=== PATIENT | female | born 1980 | race Caucasian/White ===

== ENCOUNTER 2016-10-10 11:01 | Emergency (ER) | payer MEDICAID, OTHER ==
[~2016-10-10] VITALS: Ht 160 cm; Wt 75.0 kg
[2016-10-10 11:12] VITALS: Ht 160 cm; Wt 75.0 kg
[2016-10-10] MEDS ORDERED: SOD CHLORIDE 0.9% 1,000 ML IV STA (12:44)
[2016-10-10] MEDS ORDERED: LORAZEPAM 2 MG INJ IV ONE (13:00)
--- NOTE | 2016-10-10 13:09 | ERD ---
ER Documentation Chief Complaint Date/Time DATE: 10/10/16 TIME: 13:07 Chief Complaint left jaw pain,diffiulty opening mouth.neck pain HPI This is a 36 year old female with a history of chronic neck pain for the past one half years presents to the emergency department complaining of left temporomandibular joint pain and jaw pain since this morning. Patient states that she had a stressful event at work and she started having worsening jaw pain throughout the day. Patient states that she realizes whenever she gets stressed out her neck and shoulder pain get worse. Patient states that she has not tried any medications, she states that she tried to have a baby does not want to take medications continuously. Patient states that she feels like she has palpitations and numbness and tingling and both of her hands. Patient denies any chest pain or shortness of breath however she states she has a history of chest pain and they discussed with her to follow-up with a hardboard press operator at past ER ROS All systems reviewed and are negative except as per history of present illness. Medications Home Meds Active Scripts Ibuprofen* (Ibuprofen*) 400 Mg Tablet, 400 MG PO Q6H Y for PAIN, #30 TAB Prov:BRYCE GUPTA PA-C 10/10/16 Allergies Allergies: Coded Allergies: No Known Allergy (Verified Allergy, Unknown, 02/11/07) Physical Exam Vitals Vital Signs Date Time Temp Pulse Resp B/P Pulse Ox O2 Delivery O2 Flow Rate FiO2 10/10/16 11:12 98.1 118 18 146/94 98 Physical Exam GENERAL: well-developed/well-nourished, in no apparent distress, non-toxic appearing HENT: NC/AT, bilateral tympanic membrane is normal with good cone of light, nares patent, oropharynx clear without exudates Linea alba noted in the buccal surfaces of mouth with tongue ridges Tender palpation in the left temporal mandibular joint with opening and closing of the jaw EYES: Conjunctiva normal, PERRLA, EOMI, no nystagmus noted NECK: Supple, no lymphadenopathy PULM: CTA bilaterally, no rales, rhonchi, or wheezing heard CV: Normal S1S2, RRR, good capillary refill GI: Soft, non-distended, normal bowel sounds, non-tender BACK: No midline tenderness, no masses, No CVAT EXT: No clubbing, cyanosis, or edema NEURO: Alert and orientated to person, place, and time. CN II-IIX intact. Gait and coordination were normal. Hand chairman and chief executive officer strength were equal and within normal limits SKIN: Intact, normal turgor PSYCH: Normal mood and mentation, patient denied SI Result Diagram: 10/10/16 1310 10/10/16 1310 Results 24 hrs Laboratory Tests Test 10/10/16 13:10 Alanine Aminotransferase (ALT/SGPT) 20IU/L Albumin 4.7g/dl Albumin/Globulin Ratio 1.46 Alkaline Phosphatase 63IU/L Anion Gap 15 Aspartate Amino Transf (AST/SGOT) 12IU/L Basophils # 0.010^3/ul Basophils % 0.4% Blood Morphology Comment Blood Urea Nitrogen 8mg/dl Calcium Level 9.7mg/dl Carbon Dioxide Level 29mmol/L Chloride Level 104mmol/L Creatinine 0.71mg/dl Direct Bilirubin 0.00mg/dl Eosinophils # 0.110^3/ul Eosinophils % 0.6% Globulin 3.20g/dl Glucose Level 110mg/dl Hematocrit 43.3% Hemoglobin 14.3g/dl Indirect Bilirubin 0.4mg/dl Lymphocytes # 2.210^3/ul Lymphocytes % 15.9% Mean Corpuscular Hemoglobin 28.5pg Mean Corpuscular Hemoglobin Concent 33.1g/dl Mean Corpuscular Volume 86.2fl Mean Platelet Volume 7.4fl Monocytes # 0.510^3/ul Monocytes % 3.9% Neutrophils # 10.810^3/ul Neutrophils % 79.2% Nucleated Red Blood Cells # 0.010^3/ul Nucleated Red Blood Cells % 0.0/100WBC Platelet Count 68347^3/UL Potassium Level 4.3mmol/L Red Blood Count 5.0310^6/ul Red Cell Distribution Width 13.9% Sodium Level 144mmol/L Total Bilirubin 0.4mg/dl Total Protein 7.9g/dl Troponin I < 0.012ng/ml White Blood Count 13.710^3/ul Current Medications Medications (Trade) Dose Ordered Sig/Vicky Route PRN Reason Start Time Stop Time Status Last Admin Dose Admin Lorazepam 1 mg 1 mg ONCE ONCE IV 10/10/16 13:00 10/10/16 13:01 DC 10/10/16 13:28 Sodium Chloride (NS) 1,000 ml @ 1,000 mls/hr Q1H STAT IV 10/10/16 12:44 10/10/16 13:43 DC 10/10/16 13:28 Procedures/MDM This is a 36 year old female with a history of chronic neck pain for the past one half years presents to the emergency department complaining of left temporomandibular joint pain and jaw pain since this morning. In addition patient is complaining of numbness and tingling of her hands, this is likely due to anxiety and temporomandibular joint dysfunction along with tension in her neck and shoulders. I have a low suspicion for ACS or CVA. Patient had a normal neurological exam, she is speaking clearly, patient clinically appears anxious. An EKG was done in the ED and was unremarkable for STEMI. Chest x- ray did not show any acute cardiopulmonary conditions. Patient on examination was tachycardic at 118 bpm however throughout the encounter her pulse is normal. IV access established, patient was given 1 L fluids. Patient was given 1mg of Ativan with improvement of symptoms. CBC did not show evidence of anemia. White count was elevated at 13.6 likely due to stress reaction CMP was unremarkable for liver, renal or electrolyte abnormalities. Troponin was negative. Patient is suitable to follow-up with her primary care physician for further evaluation management, I discussed to follow-up with her dentist and hardboard press operator. Discussed return to the ER for any worsening signs, patient understands and agrees with plan EKG: read and signed off by myself and Rate/Rhythm: [Normal Sinus Rhythm at 67 bpm] QRS, ST, T-waves: [No changes consistent w/ acute ischemia] Impression: [No evidence of ischemia or arrhythmia] Departure Diagnosis: Primary Impression: Jaw pain Additional Impression: Anxiety Condition: Stable BRYCE GUPTA PA-C Oct 10, 2016 13:09
--- NOTE | 2016-10-10 13:24 | RADRPT ---
PROCEDURE: XR Chest. CLINICAL INDICATION: chest pain TECHNIQUE: Single frontal view of the chest was obtained COMPARISON: None FINDINGS: The heart and mediastinum are within normal limits. The lungs are clear. There is no pleural effusion or pneumothorax. RPTAT: AA IMPRESSION: No acute disease. .Gabriel aBrker MD, Date Time Electronically viewed and signed by .Gabriel Barker MD, on 10/10/2016 13:24 .S/
[2016-10-10 13:33] LABS: ALBUMIN 4.7 g/dl (3.3-4.9); CHLORIDE 104 mmol/L (97-110)
[2016-10-10 13:34] LABS: POTASSIUM 4.3 mmol/L (3.5-5.1); SODIUM 144 mmol/L (135-144)
[2016-10-10 13:36] LABS: ALBUMIN/GLOBULIN RATIO 1.46; ANION GAP 15 (8-16); ASPARTATE AMINO TRANSFERASE 12 IU/L (15-46); BILIRUBIN,INDIRECT 0.4 mg/dl (0-1.1); BILIRUBIN,TOTAL 0.4 mg/dl (0.2-1.3); BLOOD UREA NITROGEN 8 mg/dl (7-20); CARBON DIOXIDE 29 mmol/L (21-31); CREATININE 0.71 mg/dl (0.44-1.00); TOTAL PROTEIN 7.9 g/dl (6.1-8.1)
[2016-10-10 13:37] LABS: ALANINE AMINOTRANSFERASE 20 IU/L (13-69); ALKALINE PHOSPHATASE 63 IU/L (42-121); BASOPHILS % 0.4 % (0.0-2.0); CALCIUM 9.7 mg/dl (8.4-10.2); EOSINOPHILS # 0.1 10^3/ul (0.0-0.5); EOSINOPHILS % 0.6 % (0.0-7.0); GLUCOSE 110 mg/dl (70-220); HEMATOCRIT 43.3 % (37.0-47.0); HEMOGLOBIN 14.3 g/dl (12.0-16.0); LYMPHOCYTES # 2.2 10^3/ul (0.8-2.9); LYMPHOCYTES % 15.9 % (15.0-51.0); MEAN CORPUSCULAR HEMOGLOBIN 28.5 pg (29.0-33.0); MEAN CORPUSCULAR HGB CONC 33.1 g/dl (32.0-37.0); MEAN CORPUSCULAR VOLUME 86.2 fl (82.0-101.0); MEAN PLATELET VOLUME 7.4 fl (7.4-10.4); MONOCYTE # 0.5 10^3/ul (0.3-0.9); MONOCYTES % 3.9 % (0.0-11.0); NEUTROPHIL # 10.8 10^3/ul (1.6-7.5); NEUTROPHILS % 79.2 % (39.0-77.0); PLATELET COUNT 352 10^3/UL (140-440); RED BLOOD COUNT 5.03 10^6/ul (4.20-5.40); RED CELL DISTRIBUTION WIDTH 13.9 % (11.5-14.5); UNCORRECTED WBC 13.7 10^3/ul (4.8-10.8); WHITE BLOOD COUNT 13.7 10^3/ul (4.8-10.8)
[2016-10-10 13:39] LABS: CONDITION 1
[2016-10-10 13:48] LABS: TROPONIN-I < 0.012 ng/ml (0.00-0.12)
[2016-10-10] MEDS ORDERED: IBUP400T22 PO (13:54)
[2016-10-10] MEDS ORDERED: KETOROLAC 30 MG INJ IV STA (14:22)
[2016-10-10 14:35] VITALS: BP 125/62; PULSE 77; RESP 18
== END 2016-10-10 14:36 | disposition home or self-care (01) ==
LOC: FTE 11:01
DX: R68.84 Jaw pain (principal); F41.9 Anxiety disorder, unspecified; R07.9 Chest pain, unspecified
CPT/HCPCS: 71010; 80053; 84484; 85025; 93005; 96374; 96375; 99285; J1885; J2060; J7030

== ENCOUNTER 2017-07-18 13:55 | Outpatient (CLI) | payer MEDICAID ==
[~2017-07-18] VITALS: Ht 175.3 cm; Wt 88.0 kg
[~2017-07-18 13:55] MED LIST: IBUP400T22 PO
[2017-07-18 14:24] VITALS: Ht 175.3 cm; Wt 88.0 kg
[2017-07-18] MEDS ORDERED: FOLI-49 PO (15:21)
[2017-07-18] MEDS ORDERED: CALC600T5 PO (15:21)
[2017-07-18] MEDS ORDERED: FERR240T9 PO (15:21)
[2017-07-18] MEDS ORDERED: PREN-6 PO (15:21)
[2017-07-18 15:30] LABS: BASOPHILS % 0.3 % (0.0-2.0); EOSINOPHILS # 0.2 10^3/ul (0.0-0.5); EOSINOPHILS % 1.5 % (0.0-7.0); HEMATOCRIT 30.8 % (37.0-47.0); HEMOGLOBIN 10.3 g/dl (12.0-16.0); LYMPHOCYTES # 1.8 10^3/ul (0.8-2.9); LYMPHOCYTES % 16.2 % (15.0-51.0); MEAN CORPUSCULAR HEMOGLOBIN 29.7 pg (29.0-33.0); MEAN CORPUSCULAR HGB CONC 33.4 g/dl (32.0-37.0); MEAN CORPUSCULAR VOLUME 88.8 fl (82.0-101.0); MEAN PLATELET VOLUME 8.7 fl (7.4-10.4); MONOCYTE # 0.8 10^3/ul (0.3-0.9); MONOCYTES % 7.3 % (0.0-11.0); NEUTROPHIL # 8.2 10^3/ul (1.6-7.5); NEUTROPHILS % 73.7 % (39.0-77.0); PLATELET COUNT 319 10^3/UL (140-415); RED BLOOD COUNT 3.47 10^6/ul (4.20-5.40); RED CELL DISTRIBUTION WIDTH 12.9 % (11.5-14.5); WHITE BLOOD COUNT 11.1 10^3/ul (4.8-10.8)
--- NOTE | 2017-07-18 16:06 | RADRPT ---
PROCEDURE: US Abdomen and retroperitoneal complete. CLINICAL INDICATION: abdominal pain TECHNIQUE: Multiple real-time images were acquired of the patient's abdomen and retroperitoneum ut ilizing a high resolution transducer. COMPARISON: None FINDINGS: The liver demonstrates normal echogenicity. The liver is normal in size and no focal solid lesions are seen. The portal vein is patent with normal direction of flow. No intrahepatic biliary dilatat ion is seen. The liver measures 18 cm in length. No gallstones are identified within the gallbladder. There is no pericholecystic fluid or gallbladd er wall thickening. The common bile duct measures 3 mm in maximal dimension. The visualized portions of the pancreas are unremarkable. The tail of the pancreas is not seen. The spleen is normal in size. The spleen measures 8.9 cm in length. No free fluid is identified. The kidneys are normal in size, and demonstrate normal cortical echogenicity and cortical thickness. The right kidney measures 12.5 cm. The left kidney measures 11.6 cm. There is mild right-sided h ydronephrosis. There is a 9 mm stone within the right kidney. RPTAT: AA IMPRESSION: 9 mm stone in the right kidney. Mild right-sided hydronephrosis. .Gabriel Barker MD, MD Date Time Electronically viewed and signed by .Gabriel Barker MD, on 07/18/2017 16:06 .S/
[2017-07-18 16:11] LABS: ADD UMIC YES; UR ASCORBIC ACID NEGATIVE (NEGATIVE); UR BACTERIA FEW /HPF (NONE SEEN); UR BILIRUBIN (Dip) NEGATIVE (NEGATIVE); UR BLOOD (Dip) NEGATIVE (NEGATIVE); UR CLARITY SLIGHTLY CLOUDY (CLEAR); UR COLOR YELLOW (YELLOW); UR GLUCOSE (Dip) NEGATIVE (NEGATIVE); UR KETONES (Dip) NEGATIVE (NEGATIVE); UR LEUKOCYTE ESTERASE (Dip) 1+ Leu/ul (NEGATIVE); UR MUCUS FEW /HPF (NONE SEEN); UR NITRITE (Dip) NEGATIVE (NEGATIVE); UR RBC 0 /HPF (0-5); UR SPECIFIC GRAVITY (Dip) 1.017 (1.003-1.030); UR SQUAMOUS EPITHELIAL CELL FEW /HPF (FEW); UR TOTAL PROTEIN (Dip) NEGATIVE (NEGATIVE); UR UROBILINOGEN (Dip) NEGATIVE (NEGATIVE)
--- NOTE | 2017-07-18 16:18 | RADRPT ---
PROCEDURE: Limited obstetric ultrasound CLINICAL INDICATION: Pain , labor TECHNIQUE: Multiple transverse and longitudinal grayscale images of the pelvis were obtained real sabdominally and transvaginally.. COMPARISON: same day FINDINGS: The cervix is closed with a length of 3.2 cm. There is a single viable intrauterine gestation. Cardiac activity is present with 140 beats per min evelyn. There is a vertex presentation. The placenta is anterior. There is no evidence for an abruption or placenta previa. RPTAT: AA IMPRESSION: Cervix length measures 3.2 cm. .Gabriel Barker MD, Date Time Electronically viewed and signed by .Gabriel Barker MD, on 07/18/2017 16:18 .S/
[2017-07-18] MEDS ORDERED: ACETAMINOPHEN 500 MG TAB PO STA (17:42)
--- NOTE | 2017-07-18 18:06 | TRIAGE ---
OB Triage Datetime Report Generated by CPN: 07/18/2017 18:05 Datetime: 07/18/2017 14:37 Maternal Assessment Temperature Route: Oral Datetime: 07/18/2017 14:26 Time of Arrival: 07/18/2017 13:52 EGA: 28.5 Arrived By: Ambulatory Arrived From: Home Chief Complaint: L abdominal pain Movement: Present Contractions: Denies/Absent Rupture of Membranes: Denies Vaginal Discharge: Denies Recent Sexual Intercouse: Denies Abdominal Trauma: Not Applicable Provider Notified: Pilar Initial Plan: Cervical Length, Complete Abdominal Ultrasound, UA, CBC Datetime: 07/18/2017 14:18 Stage of : OB Triage
--- NOTE | 2017-07-18 20:59 | PN ---
Triage Information Date/Time July 18, 2017 Reason for visit: Abd/pelvic pain Weeks of Gestation 28 weeks and 5 days /Para 4 para 1 Diabetes: none Hypertention: none Additional information 37-year-old with IUP at 28 weeks and 5 days presented with complaint of left lower quadrant pain for the last 5 days. Per patient pain has been intermittent and is worsening with walking and activity and moving. She denies any leaking of fluid, vaginal bleeding or decreased movement or contractions. Has a history of kidney stone in the right side. Denies any dysuria, urinary symptoms or right flank pain. Objective Heart Rate: 130's Heart Rate Comments Category 1 Contractions: None Exam Abdomen: Soft, gravid, fundal height consistent with gestational age. No uterine tenderness. minimal left sided abdominal tenderness, no guarding, no rigidity, no rebound tenderness NST: Category 1 and appropriate for gestational age No CVA tenderness Results/Medications Result Diagram: 07/18/17 1500 Results 24 hrs Laboratory Tests Test 07/18/17 15:00 White Blood Count 11.1 H Red Blood Count 3.47 #L Hemoglobin 10.3 #L Hematocrit 30.8 #L Mean Corpuscular Volume 88.8 Mean Corpuscular Hemoglobin 29.7 Mean Corpuscular Hemoglobin Concent 33.4 Red Cell Distribution Width 12.9 Platelet Count 319 Mean Platelet Volume 8.7 Neutrophils % 73.7 Lymphocytes % 16.2 Monocytes % 7.3 Eosinophils % 1.5 Basophils % 0.3 Nucleated Red Blood Cells % 0.0 Neutrophils # 8.2 H Lymphocytes # 1.8 Monocytes # 0.8 Eosinophils # 0.2 Basophils # 0.0 Nucleated Red Blood Cells # 0.0 Urine Color YELLOW Urine Clarity SLIGHTLY CLOUDY A Urine pH 7.0 Urine Specific Floral 1.017 Urine Ketones NEGATIVE Urine Nitrite NEGATIVE Urine Bilirubin NEGATIVE Urine Urobilinogen NEGATIVE Urine Leukocyte Esterase 1+ H Urine Microscopic RBC 0 Urine Microscopic WBC 2 Urine Squamous Epithelial Cells FEW Urine Bacteria FEW A Urine Mucus FEW A Urine Hemoglobin NEGATIVE Urine Glucose NEGATIVE Urine Total Protein NEGATIVE Imaging Results PROCEDURE: US Abdomen and retroperitoneal complete. CLINICAL INDICATION: abdominal pain TECHNIQUE: Multiple real-time images were acquired of the patient's abdomen and retroperitoneum utilizing a high resolution transducer. COMPARISON: None FINDINGS: The liver demonstrates normal echogenicity. The liver is normal in size and no focal solid lesions are seen. The portal vein is patent with normal direction of flow. No intrahepatic biliary dilatation is seen. The liver measures 18 cm in length. No gallstones are identified within the gallbladder. There is no pericholecystic fluid or gallbladder wall thickening. The common bile duct measures 3 mm in maximal dimension. The visualized portions of the pancreas are unremarkable. The tail of the pancreas is not seen. The spleen is normal in size. The spleen measures 8.9 cm in length. No free fluid is identified. The kidneys are normal in size, and demonstrate normal cortical echogenicity and cortical thickness. The right kidney measures 12.5 cm. The left kidney measures 11.6 cm. There is mild right-sided hydronephrosis. There is a 9 mm stone within the right kidney. RPTAT: AA IMPRESSION: 9 mm stone in the right kidney. Mild right-sided hydronephrosis. PROCEDURE: Limited obstetric ultrasound CLINICAL INDICATION: Pain , labor TECHNIQUE: Multiple transverse and longitudinal grayscale images of the pelvis were obtained transabdominally and transvaginally.. COMPARISON: same day FINDINGS: The cervix is closed with a length of 3.2 cm. There is a single viable intrauterine gestation. Cardiac activity is present with 140 beats per minute. There is a vertex presentation. The placenta is anterior. There is no evidence for an abruption or placenta previa. RPTAT: AA IMPRESSION: Cervix length measures 3.2 cm. Disposition: Discharge Assessment/Plan IUP at 28 weeks and 5 days Left lower quadrant pain, intermittent, likely musculoskeletal Abdominal ultrasound benign. 9 mm small right kidney stone, mild hydronephrosis in the right side. NST category 1 and appropriate for gestational age No evidence of active labor Findings discussed with the patient. Left lower quadrant pain likely musculoskeletal. Increased with movement and changing position. Advise about taking Tylenol and warm compress as needed pain Strict labor precaution and kick count adequate hydration discussed Follow up in 24-48 hours with her OB clinic discussed Patient verbalized understanding UA inconclusive. Sent for culture. Discussed with the patient to have the culture results with follow-up OB clinic visit from the hospital. KAMLA LINO MD Jul 18, 2017 20:59
== END 2017-07-18 18:00 | disposition home or self-care (01) ==
LOC: OBT 13:55 → L-D 13:55 → OBT 18:00
PROVIDERS: ATTEND Obstetrics & Gynecology
DX: O23.03 Infections of kidney in pregnancy, third trimester (principal); N13.6 Pyonephrosis; Z3A.28 28 weeks gestation of pregnancy
CPT/HCPCS: 76700; 76817; 81001; 85025; 87086; Z7610; 36415; G0463

== ENCOUNTER 2017-08-29 11:01 | Outpatient (CLI) | END 2017-08-29 15:00 | disposition home or self-care (01) ==

== ENCOUNTER 2017-09-12 11:08 | Outpatient (CLI) | END 2017-09-12 12:40 | disposition home or self-care (01) ==

== ENCOUNTER 2017-09-12 12:52 | Emergency (ER) | END 2017-09-12 16:36 | disposition home or self-care (01) ==

== ENCOUNTER 2017-10-01 14:10 | Inpatient (IN) | END 2017-10-03 19:40 | disposition home or self-care (01) | DRG 775 ==